=== PATIENT | female | born 1940 | race Asian ===

== ENCOUNTER → 2016-10-13 | Outpatient (CLI) | payer OTHER ==
[~2016-10-13] MED LIST: ASPI81TA42 PO; ATEN25 PO; HYDR25 PO; HYDR25TA PO; LOSA50TA37 PO; LOVA20 PO; MONT10TA21 PO; OMEP20 PO; OS500 PO; VITAD1000 PO
== END | disposition home or self-care (01) ==
LOC: RADPV 08:41
PROVIDERS: ATTEND Internal Medicine
DX: M81.0 Age-related osteoporosis without current pathological fracture (principal); M85.88 Other specified disorders of bone density and structure, other site
CPT/HCPCS: 77080

== ENCOUNTER → 2016-11-15 | Outpatient (CLI) | payer OTHER | END | disposition home or self-care (01) | LOC: RADPV 10:33 | PROVIDERS: ATTEND Internal Medicine | DX: I51.7 Cardiomegaly (principal); I70.0 Atherosclerosis of aorta; M85.842 Other specified disorders of bone density and structure, left hand; M85.841 Other specified disorders of bone density and structure, right hand; M24.842 Other specific joint derangements of left hand, not elsewhere classified; M24.841 Other specific joint derangements of right hand, not elsewhere classified | CPT/HCPCS: 71020 ==